=== PATIENT | female | born 1995 | race African-American/Black ===

== ENCOUNTER 2022-10-13 14:06 | Emergency (ER) | payer OTHER ==
[2022-10-13 14:18] VITALS: BP 142/83; PULSE 90; RESP 18; TEMP 97.4; BMI 30.2
[2022-10-13 18:23] LABS: HEMOGLOBIN 11.9 GM/dL (10.7-15.3); MCHC 33.1 g/dl (32.0-36.0); MEAN CELL VOLUME 90.7 fl (80-96); MEAN PLT VOLUME 8.9 fl (7.5-11.1); PLATELET COUNT 353 10^3/uL (134-434); RBC 3.97 M/mm3 (3.60-5.2); RDW 12.5 % (11.6-15.6); WHITE BLOOD COUNT 6.3 K/mm3 (4.0-10.0)
[2022-10-13 18:32] LABS: INR 1.08 (0.83-1.09); PROTHROMBIN TIME (PATIENT) 12.4 SEC (9.7-13.0)
[2022-10-13 18:35] LABS: ACTIVATED PTT 25.6 SECONDS (25.2-36.5)
[2022-10-13 20:09] LABS: ALBUMIN 3.2 g/dl (3.4-5.0); CALCIUM 8.9 mg/dL (8.5-10.1)
[2022-10-13 20:11] LABS: CREATININE 0.8 mg/dL (0.55-1.3)
[2022-10-13 20:14] LABS: BILIRUBIN,TOTAL 0.8 mg/dL (0.2-1); TOT PROT 6.8 g/dl (6.4-8.2)
[2022-10-13 21:13] LABS: EPI CELLS 22 /uL (0-25.1); HYALINE CASTS 0 /uL (0-3.1); URINE APPEARANCE CLEAR; URINE BACTERIA 348 /uL (0-1359); URINE BILIRUBIN NEGATIVE (NEGATIVE); URINE COLOR YELLOW; URINE GLUCOSE (UA) NEGATIVE (NEGATIVE); URINE KETONE NEGATIVE (NEGATIVE); URINE LEUK ESTERASE NEGATIVE (NEGATIVE); URINE NITRITE NEGATIVE (NEGATIVE); URINE PROTEIN NEGATIVE (NEGATIVE); URINE UROBILINOGEN 0.2 mg/dL (0.2-1.0); URINE WBC 17 /uL (0-25.8)
[2022-10-13 22:57] LABS: URINE RBC 48.4 /uL (0-23.9)
[2022-10-13 22:59] LABS: YEAST PRESENT (NEGATIVE)
== END 2022-10-13 22:26 | disposition home or self-care (01) ==
LOC: JER 14:06
DX: T81.89XA Other complications of procedures, not elsewhere classified, initial encounter (principal)
CPT/HCPCS: 0241U-QW; 36415; 74177-TC; 80053; 81003; 83036; 84703; 85027; 85610; 85730; 86850; 86870; 86900; 86901; 86902; 87077; 87086; 93005; 93010; 99285-25; Q9967